=== PATIENT | female | born 1990 | race Hispanic/Latino ===

== ENCOUNTER 2023-04-03 06:04 | Day surgery (SDC) | payer BC ==
[2023-03-31 17:50] VITALS: BP 192/69
[~2023-04-03] VITALS: Ht 165.1 cm; Wt 176.0 kg
[~2023-04-03 06:04] MED LIST: 5HTP1CAP PO; BUPR-49 PO; CYANOCOBALAMIN PO; FOLIC ACID PO; MULTIVITAMIN PO; OLME-7 PO; VITAMIN D3 PO
[2023-04-03 06:20] VITALS: BP 121/65
[2023-04-03] MEDS ORDERED: PROPOFOL 10 MG/ML 20ML VIAL IV ONE (07:50)
[2023-04-03 08:05] VITALS: BP 104/51
[2023-04-03 08:15] VITALS: BP 118/58
[2023-04-03 08:25] VITALS: BP 110/56
[2023-04-03 08:35] VITALS: BP 125/59
== END 2023-04-03 08:40 | disposition home or self-care (01) ==
LOC: DAH 06:04
PROVIDERS: ATTEND Surgery
DX: K21.9 Gastro-esophageal reflux disease without esophagitis (principal); Z20.822 Contact with and (suspected) exposure to COVID-19; I10 Essential (primary) hypertension; F17.210 Nicotine dependence, cigarettes, uncomplicated; E66.01 Morbid (severe) obesity due to excess calories; Z68.44 Body mass index [BMI] 60.0-69.9, adult; Z82.49 Family history of ischemic heart disease and other diseases of the circulatory system
CPT/HCPCS: 84703; 87426; 36415; 71045; 43235; J2704; A4620; A4215 ×2; A4223; A4657; A7002; A4222; A4221; A4663; J7030; A4606